=== PATIENT | female | born 1980 | race Caucasian/White ===

== ENCOUNTER 2018-06-28 15:14 | Emergency (ER) | payer OTHER ==
[~2018-06-28] VITALS: Wt 116.0 kg
[2018-06-28 15:36] VITALS: BP 118/72; PULSE 95; RESP 20
[2018-06-28] MEDS ORDERED: IBUP-1542 PO (21:03)
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
== END 2018-06-28 21:33 | disposition home or self-care (01) ==
LOC: FTE 15:14 → EDSEX 15:14 → FTE 21:33
DX: J34.89 Other specified disorders of nose and nasal sinuses (principal)
CPT/HCPCS: 70140; Z7502

== ENCOUNTER 2018-07-06 08:39 | Emergency (ER) | payer OTHER ==
[~2018-07-06] VITALS: Ht 162.6 cm; Wt 113.4 kg
[~2018-07-06 08:39] MED LIST: IBUP-1542 PO
[2018-07-06 08:46] VITALS: BP 117/77; PULSE 105; RESP 25; Ht 162.6 cm; Wt 113.4 kg
[2018-07-06] MEDS ORDERED: ONDANSETRON (ODT) 4 MG TAB ODT STA (09:44)
[2018-07-06] MEDS ORDERED: ACETAMINOPHEN 325 MG TAB PO ONE (10:00)
[2018-07-06] MEDS ORDERED: ACET325T33 PO (10:04)
[2018-07-06] MEDS ORDERED: ONDA8TAB14 PO (10:04)
[2018-07-06] MEDS ORDERED: BENZ-6 PO (10:04)
--- NOTE | 2018-07-06 10:25 | ERD ---
ER Documentation Chief Complaint Chief Complaint flu like symptoms HPI 37-year-old female presents emerged department complaining of fever, cough, nausea, nonbilious nonbloody vomiting and diarrhea since Tuesday. Patient denies chest pain or shortness of breath. States that she takes NyQuil last dose was last night. ROS All systems reviewed and are negative except as per history of present illness. Medications Home Meds Active Scripts Benzonatate* (Tessalon Perle*) 100 Mg Capsule, 100 MG PO Q8H PRN for COUGH, #30 CAP Prov:CARIDAD SAWANT PA-C 07/06/18 Acetaminophen* (Tylenol*) 325 Mg Tablet, 2 TAB PO Q6 PRN for PAIN AND OR ELEVATED TEMP, #30 TAB Prov:CARIDAD SAWANT PA-C 07/06/18 Ondansetron (Ondansetron Odt) 8 Mg Tab.rapdis, 8 MG PO Q6H PRN for NAUSEA AND/OR VOMITING, #30 TAB Prov:CARIDAD SAWANT PA-C 07/06/18 Ibuprofen* (Motrin*) 600 Mg Tab, 600 MG PO Q6H PRN for PAIN AND OR ELEVATED TEMP, #30 TAB Prov:CHRISTA OCHOA DO 06/28/18 Allergies Allergies: Coded Allergies: No Known Drug Allergies (Verified Allergy, Unknown, 06/28/18) PMhx/Soc Medical and Surgical Hx: pt denies Surgical Hx Hx Psychiatric Problems: Yes (anxiety/ocd) Hx Alcohol Use: Yes (occassional) Hx Substance Use: No Hx Tobacco Use: No Smoking Status: Never smoker Physical Exam Vitals Vital Signs Date Temp Pulse Resp B/P (MAP) Pulse Ox O2 O2 Flow FiO2 Time Delivery Rate 07/06/18 96.6 105 25 117/77 95 08:46 (90) Physical Exam Const: No acute distress Head: Atraumatic Eyes: Normal Conjunctiva ENT: Normal External Ears, Nose and Mouth. Neck: Full range of motion. No meningismus. Resp: Clear to auscultation bilaterally Cardio: Regular rate and rhythm, no murmurs Abd: Soft, non tender, non distended. Normal bowel sounds Skin: No petechiae or rashes Back: No midline or flank tenderness Ext: No cyanosis, or edema Neur: Awake and alert Psych: Normal Mood and Affect Results 24 hrs Current Medications Medications Dose Sig/Denilson Start Time Status Last (Trade) Ordered Route PRN Stop Time Admin Dose Reason Admin 650 mg ONCE ONCE 07/06/18 DC 07/06/18 Acetaminophen PO 10:00 09:53 (Tylenol 07/06/18 10:01 Tab) Ondansetron 8 mg ONCE STAT 07/06/18 DC 07/06/18 HCl (Zofran ODT 09:44 09:53 Odt) 07/06/18 09:45 Procedures/MDM 37-year-old female presents to the ER with Patient's symptoms, appearance and presentation is most consistent with viral syndrome likely influenza. My clinical suspicion is low suspicion for respiratory distress, viral pneumonia or secondary bacterial pneumonia, postinfluenza encephalopathy, strep pharyngitis, or pulmonary emergencies due to physical examination. Patient's lungs were clear on examination. . Patient is stable for discharge with strict precautions to return to the ER for any worsening signs or symptoms hemodynamically stable for discharge. Prescription for Zofran, Tessalon Perles and Tylenol was given to patient, discussed to return to the ED if not improving as expected or follow-up with a primary care physician. Patient understood and agreed with this plan. Tamiflu dosing: Adult 75mg BID x 5 days Peds 2 wks -1 yr : 3mg/kg/dose BID x 5 days <15kmg BID x 5 days 15-23 kmg BID x 5 days 24-40 kmg BID x 5 days Departure Diagnosis: Primary Impression: Influenza-like symptoms Condition: Stable Patient Instructions: Diet, Vomiting Or Diarrhea [6Yr-Adult], Influenza (Adult), Uri, Viral, No Abx (Adult), Vomiting And Diarrhea, Nonspecific (Adult) Referrals: NO PRIMARY,CARE PHYSICIAN (PCP) Additional Instructions: FOLLOW UP WITH YOUR PRIMARY CARE PHYSICIAN TOMORROW.Return to this facility if you are not improving as expected. Visite a garcía enzo moncada para un EXAMEN.Regrese a estas instalaciones si no se mejora richard esperbamos o richard le dijimos. [place] toda la medicina brandon y richard se le indic. Regrese a estas instalaciones si no se mejora richard esperbamos o richard le dijimos. BASHARDOUST,NUSHA N. PA-C Jul 06, 2018 10:25
== END 2018-07-06 10:25 | disposition home or self-care (01) ==
LOC: FTE 08:39
DX: R05 Cough (principal); R50.9 Fever, unspecified; R11.2 Nausea with vomiting, unspecified; R19.7 Diarrhea, unspecified
CPT/HCPCS: Z7502; Z7610; 99283

== ENCOUNTER 2018-07-11 11:25 | Emergency (ER) | payer OTHER ==
[~2018-07-11] VITALS: Ht 157.5 cm; Wt 114.0 kg
[~2018-07-11 11:25] MED LIST changes: +ACET325T33 PO; +BENZ-6 PO; +ONDA8TAB14 PO
[2018-07-11 11:34] VITALS: Ht 157.5 cm; Wt 114.0 kg
[2018-07-11] MEDS ORDERED: NAPR-985 PO (13:10)
[2018-07-11] MEDS ORDERED: PROM6.2515 PO (13:10)
[2018-07-11] MEDS ORDERED: BENZ-6 PO (13:10)
[2018-07-11] MEDS ORDERED: PSEU-79 PO (13:10)
[2018-07-11 13:41] VITALS: BP 133/93; PULSE 105; RESP 20
--- NOTE | 2018-07-11 14:15 | ERD ---
ER Documentation Chief Complaint Chief Complaint cough with bilateral ear pain x 2 days, intermittent fever HPI 37-year-old female presenting with congestion, cough and ear pain. She has not taken medications for symptoms. She said no fevers. Denies other medical problems. NKDA. Surgical history denies. Social history denies ROS All systems reviewed and are negative except as per history of present illness. Medications Home Meds Active Scripts Naproxen* (Naprosyn*) 500 Mg Tablet, 500 MG PO BID PRN for PAIN AND/OR INFLAMMATION, #30 TAB Prov:CATE QUINTANILLA PA-C 07/11/18 Pseudoephedrine Hcl* (Suphedrin*) 30 Mg Tablet, 30 MG PO Q6 PRN for CONGESTION, #30 TAB Prov:CTAE QUINTANILLA PA-C 07/11/18 Benzonatate* (Tessalon Perle*) 100 Mg Capsule, 100 MG PO Q8H PRN for COUGH, #30 CAP Prov:CATE QUINTANILLA PA-C 07/11/18 Promethazine Hcl* (Promethazine Hcl* Syrup) 6.25 Mg/5 Ml Syrup, 6.25 MG PO Q6H PRN for COUGH, #100 ML Prov:CATE QUINTANILLA PA-C 07/11/18 Benzonatate* (Tessalon Perle*) 100 Mg Capsule, 100 MG PO Q8H PRN for COUGH, #30 CAP Prov:CARIDAD SAWANT PA-C 07/06/18 Acetaminophen* (Tylenol*) 325 Mg Tablet, 2 TAB PO Q6 PRN for PAIN AND OR ELEVATED TEMP, #30 TAB Prov:CARIDAD SAWANT PA-C 07/06/18 Ondansetron (Ondansetron Odt) 8 Mg Tab.rapdis, 8 MG PO Q6H PRN for NAUSEA AND/OR VOMITING, #30 TAB Prov:CARIDAD SAWANT PA-C 07/06/18 Ibuprofen* (Motrin*) 600 Mg Tab, 600 MG PO Q6H PRN for PAIN AND OR ELEVATED TEMP, #30 TAB Prov:CHRISTA OCHOA DO 06/28/18 Allergies Allergies: Coded Allergies: No Known Drug Allergies (Verified Allergy, Unknown, 06/28/18) PMhx/Soc Hx Psychiatric Problems: Yes (anxiety/ocd) Hx Alcohol Use: Yes (occassional) Hx Substance Use: No Hx Tobacco Use: No Smoking Status: Current some day smoker FmHx Family History: No diabetes, No coronary disease, No other Physical Exam Vitals Vital Signs Date Temp Pulse Resp B/P (MAP) Pulse Ox O2 O2 Flow FiO2 Time Delivery Rate 07/11/18 97.2 105 20 133/93 96 Room Air 13:41 (106) 07/11/18 98.1 95 18 126/85 98 11:34 (99) Physical Exam GENERAL: The patient is well-appearing, well-nourished, in no acute distress HEENT: Atraumatic. Conjunctivae are pink. Pupils equal, round, and reactive to light. There is no scleral icterus. Tympanic membranes clear bilaterally. Oropharynx clear. No nystagmus or photophobia. NECK: C-spine is soft and supple. There is no meningismus. There is no cervical lymphadenopathy. CHEST: Clear to auscultation bilaterally. There are no rales, wheezes or rhonchi. HEART: Regular rate and rhythm. No murmurs, clicks, rubs or gallops. No S3 or S4. Procedures/MDM DIAGNOSTIC IMAGING REPORT Patient: MADIE PRESCOTT : 1980 Age: 37 Sex: F [facility]: [id number] [id number] DOS: 07/11/18 1213 Ordering MD: HAMZAH QUINTANILLA PA-C Location: [facility] Room/Bed: PROCEDURE: XR Chest AP portable CLINICAL INDICATION: Cough TECHNIQUE: An AP portable radiograph of the chest was submitted. COMPARISON: None. FINDINGS: Support Hardware: None Cardiovascular: The cardiovascular silhouette appears unremarkable. Lung Dave: The patient is taken a suboptimal inspiration but the lung dave are otherwise clear. Pleural Spaces: No pneumothorax or pleural effusion is identified. Osseous Structures: The osseous structures appear intact. Soft Tissues: The soft tissues appear generous. IMPRESSION: 1. Suboptimal inspiration. 2. Otherwise, unremarkable portable chest. MDM: 37-year-old female presenting with URI symptoms. I have low suspicion for pneumonia. I have low suspicion for bacterial infection. Patient symptoms are likely associated with viral URI. Patient is discharged with supportive medications. Patient is told symptoms change or worsen to immediately return to ER. Patient was recommended to follow-up with primary care within 1-2 days for close evaluation. All questions answered at discharge Departure Diagnosis: Primary Impression: Cough Condition: Stable Patient Instructions: Cough, Chronic, Uncertain Cause, (Adult) Referrals: COMMUNITY CLINICS YOU HAVE RECEIVED A MEDICAL SCREENING EXAM AND THE RESULTS INDICATE THAT YOU DO NOT HAVE A CONDITION THAT REQUIRES URGENT TREATMENT IN THE EMERGENCY DEPARTMENT. FURTHER EVALUATION AND TREATMENT OF YOUR CONDITION CAN WAIT UNTIL YOU ARE SEEN IN YOUR DOCTORS OFFICE WITHIN THE NEXT 1-2 DAYS. IT IS YOUR RESPONSIBILITY TO MAKE AN APPOINTMENT FOR FOLOW-UP CARE. IF YOU HAVE A PRIMARY DOCTOR --you should call your primary doctor and schedule an appointment IF YOU DO NOT HAVE A PRIMARY DOCTOR YOU CAN CALL OUR PHYSICIAN REFERRAL HOTLINE AT IF YOU CAN NOT AFFORD TO SEE A PHYSICIAN YOU CAN CHOSE FROM THE FOLLOWING [facility] CLINICS [facility] [address] [facility]. [facility] [address] [facility] [address] [facility] [address] [facility] [address] [facility] [address] [facility]. [facility]. [address] Additional Instructions: FOLLOW UP WITH YOUR PRIMARY CARE PHYSICIAN TOMORROW.Return to this facility if you are not improving as expected. CATE QUINTANILLA PA-C Jul 11, 2018 14:15
== END 2018-07-11 13:42 | disposition home or self-care (01) ==
LOC: FTE 11:25
DX: R05 Cough (principal); F17.210 Nicotine dependence, cigarettes, uncomplicated
CPT/HCPCS: 71045; Z7502

== ENCOUNTER 2018-12-26 18:36 | Emergency (ER) | payer OTHER ==
[~2018-12-26] VITALS: Ht 162.6 cm; Wt 123.0 kg
[~2018-12-26 18:36] MED LIST changes: +NAPR-985 PO; +PROM6.2515 PO; +PSEU-79 PO
[2018-12-26 18:39] VITALS: Ht 162.6 cm; Wt 123.0 kg
[2018-12-26] MEDS ORDERED: LORAZEPAM 1 MG TAB PO ONE (19:30)
--- NOTE | 2018-12-26 19:56 | ERD ---
ER Documentation Chief Complaint Chief Complaint intermittent CHEN x2 months. no n/v/fever HPI Patient is a 38-year-old female, past medical history of anxiety disorder, bipolar disorder, previous cocaine use, presents to the ER with multiple concerns. Patient states she has had headaches for the last 2 months. Patient states the pain comes and goes. Patient states sometimes the pain is in the front of her head sometimes on the side and on the back. Patient denies any associated fevers, chills, photophobia, phonophobia, fevers, chills, neck pain, neck stiffness or visual changes. Patient denies any unilateral weakness, slurred speech, balance problems. Patient states she is also had numbness and tingling in her hands. Patient is concerned she may have diabetes and she feels like "something is wrong" with her. Patient states she drinks 2 L of soda daily. Patient states she does not drink water. Patient is requesting to be tested to see if she has hypertension and hyperlipidemia. Patient denies any chest pain, shortness of breath, abdominal pain or LOC. Patient denies any homicidal ideations or suicidal ideations. Patient states she was taking Ativan in the past however she has not taken this medication for 1 month now. Patient does admit to feeling anxious. ROS All systems reviewed and are negative except as per history of present illness. Medications Home Meds Active Scripts Acetaminophen* (Tylophen*) 500 Mg Capsule, 1 CAP PO Q6H PRN for PAIN AND OR ELEVATED TEMP, #20 CAP Prov:INES ABEL PA-C 12/26/18 Naproxen* (Naprosyn*) 500 Mg Tablet, 500 MG PO BID PRN for PAIN AND/OR INFLAMMATION, #30 TAB Prov:CATE QUINTANILLA PA-C 07/11/18 Pseudoephedrine Hcl* (Suphedrin*) 30 Mg Tablet, 30 MG PO Q6 PRN for CONGESTION, #30 TAB Prov:CATE QUINTANILLA PA-C 07/11/18 Benzonatate* (Tessalon Perle*) 100 Mg Capsule, 100 MG PO Q8H PRN for COUGH, #30 CAP Prov:CATE QUINTANILLA PA-C 07/11/18 Promethazine Hcl* (Promethazine Hcl* Syrup) 6.25 Mg/5 Ml Syrup, 6.25 MG PO Q6H PRN for COUGH, #100 ML Prov:CATE QUINTANILLA PA-C 07/11/18 Benzonatate* (Tessalon Perle*) 100 Mg Capsule, 100 MG PO Q8H PRN for COUGH, #30 CAP Prov:CARIDAD SAWANT PA-C 07/06/18 Acetaminophen* (Tylenol*) 325 Mg Tablet, 2 TAB PO Q6 PRN for PAIN AND OR ELEVATED TEMP, #30 TAB Prov:CARIDAD SAWANT PA-C 07/06/18 Ondansetron (Ondansetron Odt) 8 Mg Tab.rapdis, 8 MG PO Q6H PRN for NAUSEA AND/OR VOMITING, #30 TAB Prov:CARIDAD SAWANT PA-C 07/06/18 Ibuprofen* (Motrin*) 600 Mg Tab, 600 MG PO Q6H PRN for PAIN AND OR ELEVATED TEMP, #30 TAB Prov:CHRISTA OCHOA DO 06/28/18 Allergies Allergies: Coded Allergies: No Known Drug Allergies (Verified Allergy, Unknown, 06/28/18) PMhx/Soc Medical and Surgical Hx: pt denies Surgical Hx History of Surgery: No Anesthesia Reaction: No Hx Neurological Disorder: No Hx Respiratory Disorders: No Hx Cardiac Disorders: Yes (HTN, HDL) Hx Psychiatric Problems: Yes (anxiety/ocd) Hx Alcohol Use: Yes (occassional) Hx Substance Use: No Hx Tobacco Use: No Smoking Status: Never smoker FmHx Family History: No diabetes Physical Exam Vitals Vital Signs Date Temp Pulse Resp B/P (MAP) Pulse Ox O2 O2 Flow FiO2 Time Delivery Rate 12/26/18 98.7 126 20 120/59 96 18:39 (79) Physical Exam GENERAL: Well-developed, well-nourished female. Appears anxious. Tangential speech however redirectable. HEAD: Normocephalic, atraumatic. EYES: Pupils are equally reactive bilaterally. EOMs grossly intact. No conjunctival erythema. ENT: Moist mucous membranes. No uvula deviation. No kissing tonsils. NECK: Supple. No meningismus. Normal range of motion of the neck. LUNG: Clear to auscultation bilaterally. No rhonchi, wheezing, rales or coarse breath sounds. HEART: Tachycardic. No murmurs, rubs or gallops. ABDOMEN: No scars, ecchymosis or rashes noted. Soft, nontender, and nondistended. Positive bowel sounds in all four quadrants. No rebound tenderness, no guarding. (-) McBurney's point tenderness. No CVA tenderness. BACK: No midline tenderness. EXTREMITIES: Equal pulses bilaterally. No peripheral clubbing, cyanosis or edema. No unilateral leg swelling. NEUROLOGIC: NEUROLOGIC: Alert and oriented x3, cooperative. Mood and affect appropriate to situation. Cranial nerves II through XII are grossly intact. Normal speech. Motor exam: 5/5 strength in upper and lower extremities. Sensory exam: Sensation intact to light touch on all four extremities. Cerebellar function exam: Rapid alternating movements intact. No dysmetria on mhomku-pb-[id number] and jdgz-dc-jdve test. Steady gait. No pronator drift. SKIN: Normal color. Warm and dry. No rashes or lesions. PSYCH: Appears anxious. Results 24 hrs Laboratory Tests Test 12/26/18 19:52 12/26/18 19:57 12/26/18 19:58 Bedside Glucose 96 mg/dL POC Beta HCG, Qualitative NEGATIVE Bedside Urine pH (LAB) 5.5 Bedside Urine Protein (LAB) 1+ Bedside Urine Glucose (UA) Negative Bedside Urine Ketones (LAB) Negative Bedside Urine Blood Negative Bedside Urine Nitrite (LAB) Negative Bedside Urine Leukocyte Esterase (L Negative Current Medications Medications Dose Sig/Denilson Start Time Status Last (Trade) Ordered Route PRN Stop Time Admin Dose Reason Admin Lorazepam 1 mg ONCE ONCE 12/26/18 DC 12/26/18 (Ativan) PO 19:30 12/26/18 19:49 19:31 Procedures/MDM MEDICAL DECISION MAKING: Patient is a 38-year-old female, past medical history of bipolar disorder, anxiety, presents the ER for concerns of headaches, tingling in her hands, feeling anxious. Patient denies any homicidal ideations or suicidal ideations. Patient denied any chest pain, shortness of breath, nausea, vomiting or LOC. Patient is concerned that she may have diabetes versus hypertension versus hyperlipidemia. Vital signs were reviewed. Patient is afebrile. Patient was not hypoxic. Patient was hemodynamically stable. Accu-Chek showed blood sugar of 96. Patient's blood pressure was within normal limits. Patient was advised she will need to follow-up with her primary care physician for cholesterol testing. Urine negative. UA was negative for acute infection or hematuria. Full neuro exam was normal. I do feel that patient's symptoms are likely due to her anxiety versus bipolar disorder. Patient states she was taking Ativan in the past and she is not taking it recently. Patient was given single dose of Ativan here. Patient was advised she will need to follow-up with a psychiatrist for any additional medication refills for her mental health problems. Dietary changes were advised. Patient was advised to increase H2O intake and limit soda use. At this time, patient's presentation most consistent with headache, anxiety paresthesias. Low suspicion for DKA, hypertensive emergency, hypertensive urgency, ACS, PE, TIA, CVA, meningitis, encephalitis, temporal arthritis, benign intracranial hypertension, glaucoma. Low suspicion for homicidal ideations or suicidal ideations. Patient was advised to follow-up with her primary care physician for an MRI and outpatient basis.c patient was nontoxic, [id number] prior to discharge. PRESCRIPTIONS: Tylenol DISCHARGE: At this time, patient is stable for discharge and outpatient management. I have encouraged the patient to hydrate well. I have instructed the patient to follow- up with his/her primary care physician in 1-2 days. If symptoms persist, patient may need to see a specialist for further examinations and testing. I have instructed the patient to promptly return to the ER at any time for any new or worsening symptoms including increased increased pain, fever, nausea, vomiting, numbness, neck stiffness, visual changes, weakness or LOC. The patient and/or family expressed understanding of and agreement with this plan. All questions were answered. Home care instructions were provided. PRESCRIPTION: Tylenol DISCHARGE: At this time, patient is stable for discharge and outpatient management. I have instructed the patient to follow-up with his/her primary care physician in 1-2 days. I have discussed with the patient the possibility of needing to see a specialist for further workup and imaging studies if symptoms persist. I have instructed the patient to promptly return to the ER for any new or worsening symptoms including increased pain, fever, nausea, vomiting, weakness or LOC. The patient and/or family expressed understanding of and agreement with this plan. All questions were answered. Home care instructions were provided. Disclaimer: Inadvertent spelling and grammatical errors are likely due to EHR/dictation software use and do not reflect on the overall quality of patient care. Also, please note that the electronic time recorded on this note does not necessarily reflect the actual time of the patient encounter. Departure Diagnosis: Primary Impression: Headache Headache type: unspecified Headache chronicity pattern: unspecified pattern Intractability: not intractable Qualified Codes: R51 - Headache Additional Impressions: Anxiety Paresthesias Condition: Fair Referrals: [facility] YOU HAVE RECEIVED A MEDICAL SCREENING EXAM AND THE RESULTS INDICATE THAT YOU DO NOT HAVE A CONDITION THAT REQUIRES URGENT TREATMENT IN THE EMERGENCY DEPARTMENT. FURTHER EVALUATION AND TREATMENT OF YOUR CONDITION CAN WAIT UNTIL YOU ARE SEEN IN YOUR DOCTORS OFFICE WITHIN THE NEXT 1-2 DAYS. IT IS YOUR RESPONSIBILITY TO MAKE AN APPOINTMENT FOR FOLOW-UP CARE. IF YOU HAVE A PRIMARY DOCTOR --you should call your primary doctor and schedule an appointment IF YOU DO NOT HAVE A PRIMARY DOCTOR YOU CAN CALL OUR PHYSICIAN REFERRAL HOTLINE AT IF YOU CAN NOT AFFORD TO SEE A PHYSICIAN YOU CAN CHOSE FROM THE FOLLOWING [facility] [address] [facility]. [facility] [address] [facility]. [facility] [address] [facility]. [facility] [address] [facility]. [facility] [address] [facility]. [facility]. [address] [facility] YOU HAVE RECEIVED A MEDICAL SCREENING EXAM AND THE RESULTS INDICATE THAT YOU DO NOT HAVE A CONDITION THAT REQUIRES URGENT TREATMENT IN THE EMERGENCY DEPARTMENT. FURTHER EVALUATION AND TREATMENT OF YOUR CONDITION CAN WAIT UNTIL YOU ARE SEEN IN YOUR DOCTORS OFFICE WITHIN THE NEXT 1-2 DAYS. IT IS YOUR RESPONSIBILITY TO MAKE AN APPOINTMENT FOR FOLOW-UP CARE. IF YOU HAVE A PRIMARY DOCTOR --you should call your primary doctor and schedule and appointment IF YOU DO NOT HAVE A PRIMARY DOCTOR YOU CAN CALL OUR PHYSICIAN REFERRAL HOTLINE AT . IF YOU CAN NOT AFFORD TO SEE A PHYSICIAN YOU CAN CHOSE FROM THE FOLLOWING [facility]: [facility] [address] [place] [address] [facility] [address] [place] [address] [facility] [address] [place] [address] [facility] Additional Instructions: Follow-up with your primary care physician for additional testing and blood work. Call your primary care doctor TOMORROW for an appointment during the next 1-2 days.See the doctor sooner or return here if your condition worsens before your appointment time. INES ABEL PA-C Dec 26, 2018 19:56
[2018-12-26] MEDS ORDERED: ACET500C5 PO (20:04)
[2018-12-26 20:38] VITALS: BP 144/97; PULSE 100; RESP 20
== END 2018-12-26 20:40 | disposition home or self-care (01) ==
LOC: FTE 18:36
DX: F41.9 Anxiety disorder, unspecified (principal); R20.2 Paresthesia of skin; I10 Essential (primary) hypertension
CPT/HCPCS: 81003; 81025; 82962; Z7502; Z7610; 99283

== ENCOUNTER 2019-01-09 10:02 | Emergency (ER) | payer OTHER ==
[~2019-01-09] VITALS: Ht 162.6 cm; Wt 104.0 kg
[~2019-01-09 10:02] MED LIST changes: +ACET500C5 PO
[2019-01-09 10:04] VITALS: BP 142/94; PULSE 89; RESP 18; Ht 162.6 cm; Wt 104.0 kg
[2019-01-09] MEDS ORDERED: ONDANSETRON (ODT) 4 MG TAB ODT STA (10:29)
[2019-01-09] MEDS ORDERED: ONDA4TAB14 PO (11:17)
--- NOTE | 2019-01-09 13:30 | ERD ---
ER Documentation Chief Complaint Chief Complaint abd pain with vomiting /diarrhea x 4 days HPI History of Present Illness: 38-year-old female who denies a past medical history coming in today due to complaint of generalized abdominal pain and vomiting and diarrhea has been present for 4 days. Patient's daughter is also present emergency department with similar symptoms in which she had the symptoms first. Patient reports that she believes that they contracted a virus or bacteria after eating a particular meal 4 days ago. Patient does not remember what they ate. Patient with 2 episodes of vomiting in the past 24 hours and 3 episodes of denies diarrhea in the past 24 hours. At home pharmacological/nonpharmacological treatment for symptoms: Denies Denies social concerns; Denies recent foreign travel ROS All systems reviewed and are negative except as per history of present illness. Medications Home Meds Active Scripts Ondansetron (Ondansetron Odt) 4 Mg Tab.rapdis, 4 MG PO Q6H PRN for NAUSEA AND/OR VOMITING, #10 TAB Prov:JANA BRONSON NP 01/09/19 Acetaminophen* (Tylophen*) 500 Mg Capsule, 1 CAP PO Q6H PRN for PAIN AND OR ELEVATED TEMP, #20 CAP Prov:INES ABEL PA-C 12/26/18 Naproxen* (Naprosyn*) 500 Mg Tablet, 500 MG PO BID PRN for PAIN AND/OR INFLAMMATION, #30 TAB Prov:CATE QUINTANILLA PA-C 07/11/18 Pseudoephedrine Hcl* (Suphedrin*) 30 Mg Tablet, 30 MG PO Q6 PRN for CONGESTION, #30 TAB Prov:CATE QUINTANILLA PA-C 07/11/18 Benzonatate* (Tessalon Perle*) 100 Mg Capsule, 100 MG PO Q8H PRN for COUGH, #30 CAP Prov:CATE QUINTANILLA PA-C 07/11/18 Promethazine Hcl* (Promethazine Hcl* Syrup) 6.25 Mg/5 Ml Syrup, 6.25 MG PO Q6H PRN for COUGH, #100 ML Prov:CATE QUINTANILLA PA-C 07/11/18 Benzonatate* (Tessalon Perle*) 100 Mg Capsule, 100 MG PO Q8H PRN for COUGH, #30 CAP Prov:CARIDAD SAWANT PA-C 07/06/18 Acetaminophen* (Tylenol*) 325 Mg Tablet, 2 TAB PO Q6 PRN for PAIN AND OR ELEVATED TEMP, #30 TAB Prov:CARIDAD SAWANT PA-C 07/06/18 Ondansetron (Ondansetron Odt) 8 Mg Tab.rapdis, 8 MG PO Q6H PRN for NAUSEA AND/OR VOMITING, #30 TAB Prov:CARIDAD SAWANT PA-C 07/06/18 Ibuprofen* (Motrin*) 600 Mg Tab, 600 MG PO Q6H PRN for PAIN AND OR ELEVATED TEMP, #30 TAB Prov:CHRISTA OCHOA DO 06/28/18 Allergies Allergies: Coded Allergies: No Known Drug Allergies (Verified Allergy, Unknown, 01/09/19) PMhx/Soc History of Surgery: No Anesthesia Reaction: No Hx Neurological Disorder: No Hx Respiratory Disorders: No Hx Cardiac Disorders: Yes (HTN, HDL) Hx Psychiatric Problems: Yes (anxiety/ocd) Hx Alcohol Use: Yes (occassional) Hx Substance Use: No Hx Tobacco Use: No Smoking Status: Never smoker FmHx Family History: diabetes Physical Exam Vitals Vital Signs Date Temp Pulse Resp B/P (MAP) Pulse Ox O2 O2 Flow FiO2 Time Delivery Rate 01/09/19 98.3 89 18 142/94 98 10:04 (110) Physical Exam Const: No acute distress, afebrile Head: Atraumatic Eyes: Normal Conjunctiva ENT: Normal External Ears, Nose and Mouth. Moist mucous membranes Neck: Full range of motion. No meningismus. Resp: Clear to auscultation bilaterally Cardio: Regular rate and rhythm, no murmurs Abd: Soft, non tender, non distended. Bowel sounds present. Obese. No guarding, no masses, no rigidity Skin: No petechiae or rashes Back: No midline or flank tenderness Ext: No cyanosis, or edema Neur: Awake and alert x3, speaking in clear sentences, no focal deficits or facial asymmetry Psych: Normal Mood and Affect Results 24 hrs Laboratory Tests Test 01/09/19 10:36 Urine Color TONY Urine Clarity CLOUDY Urine pH 5.0 Urine Specific [place] 1.031 Urine Ketones TRACE mg/dL Urine Nitrite NEGATIVE mg/dL Urine Bilirubin NEGATIVE mg/dL Urine Urobilinogen NEGATIVE mg/dL Urine Leukocyte Esterase 1+ Jade/ul Urine Microscopic RBC 2 /HPF Urine Microscopic WBC 3 /HPF Urine Squamous Epithelial Cells MANY /HPF Urine Bacteria FEW /HPF Urine Mucus FEW /HPF Urine Hemoglobin NEGATIVE mg/dL Urine Glucose NEGATIVE mg/dL Urine Total Protein 1+ mg/dl Current Medications Medications Dose Sig/Denilson Start Time Status Last (Trade) Ordered Route PRN Stop Time Admin Dose Reason Admin Ondansetron 4 mg ONCE STAT 01/09/19 DC 01/09/19 HCl (Zofran ODT 10:29 10:57 Odt) 01/09/19 10:31 Procedures/MDM Gemma and I would love like bloated ED COURSE: ED course includes a thorough examination and history. The patient was stable throughout ED course. I kept the patient and/or family informed of laboratory and diagnostic imaging results throughout the ED course. LABS: Urinalysis with elevated specific gravity ,Trace ketones. 1+ leukocyte Estrace, many epithelial cell, few bacteria. Urinalysis revealing hemoconcentration and negative for urinary infection. MEDICATIONS GIVEN IN ER: Zofran Patient tolerated medication well with no adverse reactions. Patient passed p.o. challenge, no vomiting noted. MEDICAL DECISION MAKING: Low suspicion for life-threatening medical emergency. Low suspicion for acute abdominal emergency. Low suspicion for infectious process that requires antibiotics. Low suspicion for need for IV hydration as patient is able to tolerate p.o. fluids. Otherwise healthy patient presenting with constellation of symptoms likely representing gastroenteritis as characterized by history, physical exam findings, lab findings. Patient reassessment @ 1130: Patient hemodynamically stable. No respiratory distress, otherwise relatively well appearing and nontoxic. Disposition given. Patient educated on diagnoses, prescriptions, follow-up care, return precautions. Strict return precautions given for worsening condition; questions answered discharge. Patient verbalizes understanding of discharge instructions. PRESCRIPTIONS FOR HOME: Zofran DISPOSITION: DISCHARGE At this time, patient is stable for discharge and outpatient management. I have instructed the patient to follow-up with his/her primary care physician in 1-2 days. I have discussed with the patient the possibility of needing to see a specialist for further workup and imaging studies if symptoms persist. I have instructed the patient to promptly return to the ER for any new or worsening symptoms including increased pain, fever, nausea, vomiting, weakness or LOC. The patient and/or family expressed understanding of and agreement with this plan. All questions were answered. Home care instructions were provided. DISCLAIMER: Inadvertent spelling and grammatical errors are likely due to EHR/dictation sof [employer] use and do not reflect on the overall quality of patient care. Also, please note that the electronic time recorded on this note does not necessarily reflect the actual time of the patient encounter. Departure Diagnosis: Primary Impression: Gastroenteritis Condition: Stable Patient Instructions: Dehydration, Gastroenteritis, Viral (6Y-Adult) Referrals: [facility] YOU HAVE RECEIVED A MEDICAL SCREENING EXAM AND THE RESULTS INDICATE THAT YOU DO NOT HAVE A CONDITION THAT REQUIRES URGENT TREATMENT IN THE EMERGENCY DEPARTMENT. FURTHER EVALUATION AND TREATMENT OF YOUR CONDITION CAN WAIT UNTIL YOU ARE SEEN IN YOUR DOCTORS OFFICE WITHIN THE NEXT 1-2 DAYS. IT IS YOUR RESPONSIBILITY TO MAKE AN APPOINTMENT FOR FOLOW-UP CARE. IF YOU HAVE A PRIMARY DOCTOR --you should call your primary doctor and schedule an appointment IF YOU DO NOT HAVE A PRIMARY DOCTOR YOU CAN CALL OUR PHYSICIAN REFERRAL HOTLINE AT IF YOU CAN NOT AFFORD TO SEE A PHYSICIAN YOU CAN CHOSE FROM THE FOLLOWING [facility] [address] [facility]. [facility] [address] [facility]. [facility] [address] [facility] [address] [facility] [address] [facility]. [facility]. [address] [facility]. [facility] YOU HAVE RECEIVED A MEDICAL SCREENING EXAM AND THE RESULTS INDICATE THAT YOU DO NOT HAVE A CONDITION THAT REQUIRES URGENT TREATMENT IN THE EMERGENCY DEPARTMENT. FURTHER EVALUATION AND TREATMENT OF YOUR CONDITION CAN WAIT UNTIL YOU ARE SEEN IN YOUR DOCTORS OFFICE WITHIN THE NEXT 1-2 DAYS. IT IS YOUR RESPONSIBILITY TO MAKE AN APPOINTMENT FOR FOLOW-UP CARE. IF YOU HAVE A PRIMARY DOCTOR --you should call your primary doctor and schedule and appointment IF YOU DO NOT HAVE A PRIMARY DOCTOR YOU CAN CALL OUR PHYSICIAN REFERRAL HOTLINE AT . IF YOU CAN NOT AFFORD TO SEE A PHYSICIAN YOU CAN CHOSE FROM THE FOLLOWING [facility]: [facility] [address] [place] [address] [facility] [address] [place] [address] [facility] [address] [place] [address] Additional Instructions: Thank you very much for allowing us to participate in your care. Your health and safety is our top priority at [facility]. It is important to read all discharge instructions and education provided in your discharge packet. *Adequate hydration is important over the next 1 to 3 days. Ensure that you are drinking at least FOUR 16-20 ounce bottles of water a day preferably an electrolyte water.* Call your primary care doctor TOMORROW for an appointment during the next 2-4 days and bring all the information and medications prescribed. Have prescriptions filled and follow precisely the directions on the label. If the symptoms get worse and your provider is unavailable, return to the Emergency Department immediately. JANA BRONSON NP Jan 09, 2019 13:30
== END 2019-01-09 11:38 | disposition home or self-care (01) ==
LOC: FTE 10:02
DX: K52.9 Noninfective gastroenteritis and colitis, unspecified (principal); I10 Essential (primary) hypertension
CPT/HCPCS: 81001; Z7502; Z7610; 99283